=== PATIENT | male | born 1945 | race Two or more races ===

== ENCOUNTER 2019-08-04 11:50 | Emergency (ER) | payer OTHER ==
[~2019-08-04] VITALS: Ht 180.3 cm; Wt 86.2 kg
[2019-08-04] MEDS ORDERED: POTASSIUM CHLO20 ME2 PO (12:00)
[2019-08-04] MEDS ORDERED: HYDRALAZINE HCL25 MG PO (12:01)
[2019-08-04] MEDS ORDERED: LOSARTAN POTAS100 MG PO (12:03)
[2019-08-04] MEDS ORDERED: METFORMIN HCL1000 M3 PO (12:03)
[2019-08-04] MEDS ORDERED: WARFARIN SODIUM PO (12:04)
[2019-08-04] MEDS ORDERED: LASIX20 MG PO (12:05)
[2019-08-04] MEDS ORDERED: [UNRECOGNIZED DRUG - OTHER] PO (12:06)
== END 2019-08-04 20:49 | disposition home or self-care (01) ==
LOC: ER 11:50
DX: R14.0 Abdominal distension (gaseous) (principal); N18.2 Chronic kidney disease, stage 2 (mild)

== ENCOUNTER 2021-10-09 10:42 | Emergency (ER) | payer OTHER ==
[~2021-10-09] VITALS: Ht 182.9 cm; Wt 88.5 kg
[~2021-10-09 10:42] MED LIST: HYDRALAZINE HCL25 MG PO; LASIX20 MG PO; LOSARTAN POTAS100 MG PO; METFORMIN HCL1000 M3 PO; POTASSIUM CHLO20 ME2 PO; WARFARIN SODIUM PO; [UNRECOGNIZED DRUG - OTHER] PO
[2021-10-09] MEDS ORDERED: POTASSIUM CHLO10 MEQ PO (11:06)
[2021-10-09] MEDS ORDERED: CARVEDILOL25 M1 PO (11:06)
[2021-10-09] MEDS ORDERED: VITAMIN C500 M1 PO (11:06)
[2021-10-09] MEDS ORDERED: FERROCITE324 MG PO (11:06)
[2021-10-09] MEDS ORDERED: CLOPIDOGREL BIS75 MG PO (11:07)
[2021-10-09] MEDS ORDERED: FUROSEMIDE40 MG PO (11:07)
[2021-10-09] MEDS ORDERED: DUI500 PO (21:20)
== END 2021-10-10 13:48 | disposition home or self-care (01) ==
LOC: ER 10:42
DX: R33.8 Other retention of urine (principal); R31.0 Gross hematuria; I25.10 Atherosclerotic heart disease of native coronary artery without angina pectoris; I11.0 Hypertensive heart disease with heart failure; I50.9 Heart failure, unspecified; Z79.02 Long term (current) use of antithrombotics/antiplatelets; Z79.01 Long term (current) use of anticoagulants

== ENCOUNTER 2022-07-13 11:27 | Inpatient (IN) | payer OTHER ==
[~2022-07-13] VITALS: Ht 167.6 cm; Wt 70.8 kg
[~2022-07-13 11:27] MED LIST changes: +CARVEDILOL25 M1 PO; +CLOPIDOGREL BIS75 MG PO; +DUI500 PO; +FERROCITE324 MG PO; +FUROSEMIDE40 MG PO; +POTASSIUM CHLO10 MEQ PO; +VITAMIN C500 M1 PO
[2022-07-13] MEDS ORDERED: LOSARTAN POTASS50 MG (12:22)
[2022-07-22] MEDS ORDERED: SOD CITRATE-CI473 ML PO (09:26)
[2022-07-22] MEDS ORDERED: PROTEINEX-18 LI30 ML PO (09:26)
[2022-07-22] MEDS ORDERED: ATARAX25 MG PO (09:26)
[2022-07-22] MEDS ORDERED: FENTANYL1 EAC7 TD (09:26)
[2022-07-22] MEDS ORDERED: CHOLESTYRAMINE P4 GM PO (09:26)
[2022-07-22] MEDS ORDERED: LEVOTHYROXINE50 MCG PO (09:26)
== END 2022-07-22 11:39 | disposition home or self-care (01) | DRG 435 ==
LOC: ER 11:27 → MEDI 18:00 → SEC-K 18:00 → MEDI 07-14 12:58
PROVIDERS: Internal Medicine Gastroenterology; ADMIT Internal Medicine; ATTEND Internal Medicine
PROC: BW24ZZZ Computerized Tomography (CT Scan) of Chest and Abdomen (ICD-10-PCS; 2022-07-13)
PROC: BW21ZZZ Computerized Tomography (CT Scan) of Abdomen and Pelvis (ICD-10-PCS; 2022-07-13)
PROC: B24BZZZ Ultrasonography of Heart with Aorta (ICD-10-PCS; 2022-07-13)
PROC: 4A12X4Z Monitoring of Cardiac Electrical Activity, External Approach (ICD-10-PCS; 2022-07-15)
PROC: 0FB03ZX Excision of Liver, Percutaneous Approach, Diagnostic (ICD-10-PCS; 2022-07-16)
PROC: 30233R1 Transfusion of Nonautologous Platelets into Peripheral Vein, Percutaneous Approach (ICD-10-PCS; 2022-07-17)
PROC: 0DB78ZX Excision of Stomach, Pylorus, Via Natural or Artificial Opening Endoscopic, Diagnostic (ICD-10-PCS; principal; 2022-07-17 15:00)
DX: C78.7 Secondary malignant neoplasm of liver and intrahepatic bile duct (principal); I50.23 Acute on chronic systolic (congestive) heart failure; K76.7 Hepatorenal syndrome; I13.0 Hypertensive heart and chronic kidney disease with heart failure and stage 1 through stage 4 chronic kidney disease, or unspecified chronic kidney disease; N17.8 Other acute kidney failure; N39.0 Urinary tract infection, site not specified; C78.00 Secondary malignant neoplasm of unspecified lung; E87.1 Hypo-osmolality and hyponatremia; N18.4 Chronic kidney disease, stage 4 (severe); J90 Pleural effusion, not elsewhere classified; K80.21 Calculus of gallbladder without cholecystitis with obstruction; I48.91 Unspecified atrial fibrillation; E03.9 Hypothyroidism, unspecified; I25.10 Atherosclerotic heart disease of native coronary artery without angina pectoris; E11.22 Type 2 diabetes mellitus with diabetic chronic kidney disease; E86.0 Dehydration; I48.0 Paroxysmal atrial fibrillation; D63.0 Anemia in neoplastic disease; B19.20 Unspecified viral hepatitis C without hepatic coma; B96.81 Helicobacter pylori [H. pylori] as the cause of diseases classified elsewhere; Z74.01 Bed confinement status; Z51.5 Encounter for palliative care; I73.9 Peripheral vascular disease, unspecified